=== PATIENT | male | born 1990 | race Caucasian/White ===

== ENCOUNTER 2018-11-28 19:50 | Emergency (ER) | payer MEDICAID ==
[~2018-11-28] VITALS: Ht 182.9 cm; Wt 61.3 kg
[2018-11-28 19:54] VITALS: BP 155/90
[2018-11-28] MEDS ORDERED: BUPIVAcaine/PF 2.5 mg/ml (0.25%) 30ml vial IJ ONE (20:10)
[2018-11-28] MEDS ORDERED: AMOX-101 PO (20:15)
== END 2018-11-28 20:31 | disposition home or self-care (01) ==
LOC: ER 19:52
DX: K08.89 Other specified disorders of teeth and supporting structures (principal)
CPT/HCPCS: 64400; 99284; J3490